=== PATIENT | male | born 1985 | race Caucasian/White ===

== ENCOUNTER 2023-03-12 00:52 | Emergency (ER) | payer MEDICAID ==
[~2023-03-12] VITALS: Ht 167.6 cm; Wt 82.3 kg
[2023-03-12] MEDS ORDERED: LORazepam 0.5 MG TAB PO ONE (01:30)
[2023-03-12 01:56] LABS: Basophils # (auto) 0.1 10 ^3/uL (0-0.2); Basophils % (auto) 0.8 % (0.0-2.0); Eosinophils # (auto) 0.1 10 ^3/uL (0-0.8); Eosinophils % (auto) 1.6 % (0.0-7.0); Hematocrit 42.7 % (41.0-53.0); Hemoglobin 13.8 g/dL (13.5-17.5); Lymphocytes # (auto) 1.7 10 ^3/uL (0.4-5.4); Lymphocytes % (auto) 21.5 % (10.0-50.0); Mean Corpuscular Hemoglobin 29.4 pg (28.0-32.0); Mean Corpuscular Hgb Conc. 32.4 g/dL (32.0-36.0); Mean Corpuscular Volume 90.7 fL (80.0-100.0); Monocytes # (auto) 0.8 10 ^3/uL (0-1.3); Monocytes % (auto) 10.5 % (0.0-12.0); Neutrophils # (auto) 5.1 10 ^3/uL (1.6-8.6); Neutrophils % (auto) 65.6 % (37.0-80.0); Red Blood Cells 4.71 10^6/uL (4.5-5.90); Red Cell Distribution Width 14.2 % (11.8-14.3); White Blood Cell 7.8 10^3/uL (4.4-10.8)
[2023-03-12 02:17] LABS: Alanine Aminotransferase 90 U/L (7-40); Alkaline Phosphatase 67 U/L (46-116); Anion Gap 8 (5-15); Blood Urea Nitrogen 18 mg/dL (9-23); Calcium 8.8 mg/dL (8.7-10.4); Carbon Dioxide 26 mmol/L (20-30); Chloride 105 mmol/L (98-107); Glucose 148 mg/dL (74-106); Potassium 3.7 mmol/L (3.5-5.1); Sodium 139 mmol/L (136-145); Total Protein 6.7 g/dL (5.7-8.2)
[2023-03-12 02:18] LABS: Albumin 4.3 g/dL (3.2-4.8); Aspartate Aminotransferase 74 U/L (13-40)
[2023-03-12 02:19] LABS: Bilirubin, Total 0.8 mg/dL (0.2-1.0)
[2023-03-12 02:22] LABS: Salicylate < 3.0 mg/dL (2.8-20.0)
[2023-03-12 02:33] LABS: Blood Alcohol < 3.0 mg/dL (<10)
[2023-03-12 02:45] LABS: Acetaminophen < 2.0 UG/ML (10.0-20.0)
[2023-03-13 15:44] LABS: Urine Bacteria NONE SEEN /hpf (None Seen); Urine Blood Negative /uL (Negative); Urine Clarity HAZY (Clear); Urine Color Yellow (Yellow); Urine Mucus FEW (None Seen); Urine Protein, UAD TRACE (Negative); Urine Specific Gravity 1.022 (1.001-1.035); Urine WBC 2 /hpf (0 - 3); Urine pH 7.5 (5.0-8.0)
[2023-03-13 16:00] LABS: Amphetamine Screen, Urine Neg (NEGATIVE)
[2023-03-13 16:01] LABS: Barbiturate Scree,Urine Neg (NEGATIVE); Benzodiazephine Screen, Urine Neg (NEGATIVE); Cannabinoid Screen, Urine Neg (NEGATIVE); Cocaine Screen, Urine Neg (NEGATIVE); Opiate Scree,Urine Neg (NEGATIVE); Phencyclidine Screen, Urine Neg (NEGATIVE)
[2023-03-14 08:20] VITALS: PULSE 85; RESP 16; O2SAT 96
[2023-03-14 15:19] LABS: COVID19 ANTIGEN SOFIA FIA POSITIVE (NEGATIVE)
[2023-03-14 22:16] VITALS: BP 133/84; PULSE 73; RESP 16; TEMP 98.3; O2SAT 98
== END 2023-03-14 02:17 ==
LOC: ER 00:52
DX: U07.1 COVID-19 (principal); R45.851 Suicidal ideations; F32.A Depression, unspecified; R07.89 Other chest pain
CPT/HCPCS: 36415; 80053; 80307; 80320; 80329; 81001; 85025; 87426; 93005